=== PATIENT | male | born 1985 | race Caucasian/White ===

== ENCOUNTER 2025-05-07 07:14 | Emergency (ER) | payer OTHER ==
[~2025-05-07] VITALS: Ht 167.6 cm; Wt 73.0 kg
[2025-05-07 07:18] VITALS: O2SAT 96
[2025-05-07 07:37] LABS: BASOPHILS % 0.9 % (0.0-2.0); EOSINOPHILS % 3.0 % (0.0-5.0); HEMATOCRIT. 49.6 % (42.0-52.0); HEMOGLOBIN. 16.4 g/dL (14.0-18.0); LYMPHOCYTES % 26.1 % (20.0-50.0); MEAN PLATELET VOLUME 7.1 fl (7.4-10.4); MONOCYTES % 5.1 % (2.0-8.0); NEUTROPHILS % 64.9 % (40.0-76.0); PLATELET 252 x1000/uL (130-400); RED BLOOD CELL COUNT 5.41 mill/uL (4.7-6.1); RED CELL DISTRIBUTION WIDTH 13.4 % (11.6-14.6)
[2025-05-07 07:51] LABS: CREATININE 1.1 mg/dL (0.6-1.3); UREA NITROGEN BLOOD 16 mg/dL (9-23)
[2025-05-07 07:53] LABS: TROPONIN I HIGH SENSITIVITY < 4 ng/L (3.0-53)
[2025-05-07 09:00] VITALS: BP 134/76; PULSE 70; RESP 18; TEMP 36.9; O2SAT 96
== END 2025-05-07 09:15 | disposition home or self-care (01) ==
LOC: ER 07:14
DX: R07.9 Chest pain, unspecified (principal)
CPT/HCPCS: 99285; 71045; 80048; 85025; 84484; 36415; 93005; A4615